=== PATIENT | male | born 1955 | race Caucasian/White ===

== ENCOUNTER 2017-05-02 08:58 | Outpatient (CLI) | payer OTHER ==
[~2017-05-02] VITALS: Ht 177.8 cm; Wt 86.4 kg
--- NOTE | ~2017-05-02 | HEMODYNAMI ---
PATIENT:RAMO MAURO MEDICAL RECORD: [id number] : 53 LOCATION:[facility]CAT ADMISSION DATE: 05/02/17 Generatedon:05/02/201715:03 Patient name: RAMO MAURO Patient #: [id number] SSN: : 1955 Date of study: 05/02/2017 Page: Of Hemodynamic Procedure Report Patient Data Patient Demographics Procedure consent was obtained First Name: RAMO Gender: Male Last Name: ZUNILDA : 1955 Middle Initial: L Age: 61 year(s) Patient #: [id number] Race: Additional ID: [id number] Contact details Address: [address] [place] [address] State: [place] City: [place] Zip code: [address] Past Medical History Allergies: No known allergies Admission Admission Data Admission Date: 05/02/2017 Admission Time: 8:58 Height (in.): 70 BSA: 2.04 (m2) Height (cm.): 177.8 BMI: 27.32 (kg/m2) Weight (lbs.): 190.39 Weight (kg.): 86.36 Lab Results Lab Result Date: 05/02/2017 Lab Result Time: 10:45 Biochemistry Name Units Result Min Max BUN mg/dl 18 --(---*)-- 7 18 Creatinine mg/dl 1.1 --(--*-)-- 0.6 1.3 CBC Name Units Result Min Max Hematocrit % 47.5 --(-*--)-- 42 54 Hemoglobin g/dl 16 --(--*-)-- 13.5 17.5 Procedure Procedure Types Cath Procedure Diagnostic Procedure [facility] w/Coronaries PCI Procedure Coronary Stent Initial Miscellaneous Procedures Moderate Sedation up to 30 minutes Procedure Description Procedure Date Procedure Date: 05/02/2017 Procedure Start Time: 14:43 Procedure End Time: 15:02 Procedure Staff Name Function Ángel Nath MD Performing Physician Jessica Brunner RT Scrub Izzy Powell RN Nurse Mal Arteaga RT Monitor Procedure Data Cath Procedure Fluoroscopy Diagnostic fluoroscopy Total fluoroscopy Time: 3.6 time: 3.6 min min Diagnostic fluoroscopy Total fluoroscopy dose: 528 dose: 528 mGy mGy Contrast Material Contrast Material Type Amount (ml) Isovue 300 80 Entry Location Entry Primary Successful Side Size Upsize Upsize Entry Closure Succes sful Closure Location (Fr) 1 (Fr) 2 (Fr) Remarks Device Remarks Femoral Right 5 Fr 6 Fr Exoseal artery Short Estimated blood loss: 10 ml Diagnostic catheters Device Type Used For End Catheter Placement Cordis 5Fr Pigtail Procedure Catheter (MP) Cordis 5Fr JL 4.0 Procedure Catheter (MP) Cordis 5Fr 3DRC Catheter Procedure (MP) Procedure Complications No complications Procedure Medications Medication Administration Route Dosage Oxygen NC 2 l/min Heparin Flush Bag added to field 2 bags (1000units/500ml NS) Lidocaine 2% added to field 20 Fentanyl I.V. 50 mcg Versed I.V. 1 mg Fentanyl I.V. 50 mcg Versed I.V. 1 mg Fentanyl I.V. 50 mcg Versed I.V. 1 mg Fentanyl I.V. 50 mcg Versed I.V. 1 mg Heparin Bolus I.V. 4000 units Hemodynamics Rest BSA: 2.04 (m2) HGB: 16 (g/dl) O2 Consumption: Estimated: 244.71 (ml/min) O2 Cons umption indexed: Estimated:119.96 (ml/min/m) Heart Rate: 77 (bpm) Snapshots Pre Cath Intra NCS Post Cath Vital Signs Time Heart Resp SPO2 etCO2 [id number] NIBP (mmHg) Rhythm Pain Sedatio n Rate (ipm) (%) (mmHg) (mmHg) Status Level (bpm) 14:08:16 68 17 99 0 0 156/98(133) NSR 0 (11) 10(A) , No pain 14:12:36 68 18 96 0 0 157/90(124) NSR 0 (11) 10(A) , No pain 14:16:50 73 16 99 0 0 144/98(122) NSR 0 (11) 10(A) , No pain 14:21:04 82 25 98 0 0 147/104(118) NSR 0 (11) 10(A) , No pain 14:25:18 76 18 97 0 0 141/98(117) NSR 0 (11) 10(A) , No pain 14:29:30 74 22 98 0 0 146/93(115) NSR 0 (11) 10(A) , No pain 14:33:44 73 17 97 0 0 125/92(102) NSR 0 (11) 10(A) , No pain 14:37:50 75 16 97 0 0 141/91(107) NSR 0 (11) 10(A) , No pain 14:42:04 76 19 97 0 0 134/87(112) NSR 0 (11) 9(A) , No pain 14:46:20 70 18 97 0 0 125/76(98) NSR 0 (11) 9(A) , No pain 14:51:25 66 18 98 0 0 181/112(141) NSR 0 (11) 9(A) , No pain 14:55:39 77 16 97 0 0 150/92(111) NSR 0 (11) 9(A) , No pain 14:59:55 75 11 96 0 0 135/81(105) NSR 0 (11) 9(A) , No pain Medications Time Medication Route Dose Verified Delivered Reason Notes Effectiveness by by 14:15:33 Oxygen NC 2 Izzy Izzy used for l/min Powell Powell trashman RN 14:15:41 Heparin Flush added 2 Izzy Izzy used for Bag to bags Powell Powell procedure (1000units/500ml RN RN NS) 14:15:48 Lidocaine 2% added 20ml Izzy Izzy used for to vial Powell Powell procedure field VALENCIA RN 14:38:35 Fentanyl I.V. 50 Izzy Izzy for sedation mcg Sherry Powell RN RN 14:38:39 Versed I.V. 1 mg Izzy Izzy for sedation Sherry Powell RN RN 14:40:26 Fentanyl I.V. 50 Izzy Izzy for sedation mcg Sherry Powell RN RN 14:40:29 Versed I.V. 1 mg Izzy Izzy for sedation Sherry Powell RN RN 14:41:30 Fentanyl I.V. 50 Izzy Izzy for sedation mcg Sherry Powell RN RN 14:41:34 Versed I.V. 1 mg Izzy Izzy for sedation Sherry Powell RN RN 14:43:50 Fentanyl I.V. 50 Izzy Izzy for sedation mcg Sherry Powell RN RN 14:43:53 Versed I.V. 1 mg Izzy Izzy for sedation Sherry Powell RN RN 14:50:25 Heparin Bolus I.V. 4000 Izzy Izzy for units Sherry Powell anticoagulation RN shroud line tier Log Time Note 13:57:44 Izzy Powell RN sent for patient. Start room use. 13:57:45 Time tracking: Regular hours 13:57:50 Plan of Care:Hemodynamics will remain stable., Cardiac rhythm will remain stable., Comfort level will be maintained., Respiratory function will remain adequate., Patient/ family verbilizes understanding of procedure., Procedure tolerated without complication., Recovers from procedure without complications.. 14:00:58 Patient received from Pre/Post Procedure Room to CCL 1 Alert and oriented. Tansferred to table in Supine position. 14:00:59 Warm blankets applied, and tita hugger turned on for patient comfort. 14:01:00 Correct patient and procedure confirmed by team. 14:01:01 Signed procedure consent form obtained from patient. 14:01:02 ECG and BP/O2 sat monitors applied to patient. 14:01:03 Full Disclosure recording started 14:07:05 Vital chart was started 14:07:11 Rhythm: sinus rhythm 14:07:24 H&P Date Dictated: 04/29/2017 Within 30 days and on chart., H&P Addendum completed by physician on day of procedure. (MUST COMPLETE FOR ALL OUTPATIENTS). 14:07:25 Pre-procedure instructions explained to patient. 14:07:25 Pre-procedure instructions explained to patient. 14:07:27 Pre-op teaching completed and patient verbalized understanding. 14:07:30 Family in patients room. 14:07:31 Patient NPO since Midnight. 14:07:39 Patient allergic to No known allergies 14:10:33 Is the patient allergic to Iodine/contrast media? No. 14:11:15 Is patient on blood thinner?Yes 14:11:17 ACC The patient was administered the following blood thiners within the last 24 hours: ACCPlavix 14:11:19 Patient diabetic? No. 14:11:27 Previous problem with sedation/anesthesia? No ? 14:11:28 Snore? Yes 14:11:29 Sleep apnea? No 14:11:30 Deviated septum? No 14:11:31 Opens mouth fully? Yes 14:11:31 Sticks out tongue? Yes 14:11:33 Airway obstruction? No ? 14:11:34 Dentures? No ? 14:12:01 Pre procedure: right dorsailis pedis pulse 1+ Palpable, but thready & weak; easily obliterated 14:12:04 Patient pain scale 0/10 ?. 14:12:22 IV patent on arrival in left forearm with 0.9% NaCl at [facility]. 14:15:33 Oxygen 2 l/min NC was administered by Izzy Powell RN; used for procedure; 14:15:41 Heparin Flush Bag (1000units/500ml NS) 2 bags added to field was administered by Izzy Powell RN; used for procedure; 14:15:48 Lidocaine 2% 20ml vial added to field was administered by Izzy Powell RN; used for procedure; 14:15:49 Lab Result : BUN 18 mg/dl 14:15:49 Lab Result : Creatinine 1.1 mg/dl 14:15:49 Lab Result : Hematocrit 47.5 % 14:15:49 Lab Result : Hemoglobin 16 g/dl 14:15:52 Lab results completed and on chart. 14:15:57 Right groin area was prepped with chlora-prep and draped in sterile fashion 14:15:58 Alarms reviewed by R. N. 14:15:59 Sharps counted by scrub and verified by R.N. 14:16:02 Use device set Femoral Dx 14:16:04 Tegaderm 4 x 4 opened to sterile field. 14:16:04 Acist Manifold opened to sterile field. 14:16:06 Acist Hand Control opened to sterile field. 14:16:06 Acist Syringe opened to sterile field. 14:16:07 Bag Decanter opened to sterile field. 14:16:07 Medline Cath Pack opened to sterile field. 14:16:08 Terumo 5Fr [place] Sheath opened to sterile field. 14:16:08 St Mesfin 260cm J .035 wire opened to sterile field. 14:16:10 Diagnostic Infinity 5Fr Multipack catheter opened to sterile field. 14:17:06 Patient Height : 70 cm 14:17:11 Patient Weight : 190.39 kg 14:22:05 Baseline sample Acquired. 14:38:00 Physician arrived 14:38:00 --------ALL STOP TIME OUT------ 14:38:01 Final Timeout: patient, procedure, and site verified with staff and physician. All members of the team are in agreement. 14:38:04 Right groin site verified by team. 14:38:07 Physical assessment completed. ASA score P 2 - A patient with mild systemic disease as per Ángel Nath MD. 14:38:12 Sedation plan: IV Moderate Sedation Versed, Fentanyl 14:38:35 Fentanyl 50 mcg I.V. was administered by Izzy Powell RN; for sedation; 14:38:39 Versed 1 mg I.V. was administered by Izzy Powell RN; for sedation; 14:40:26 Fentanyl 50 mcg I.V. was administered by Izzy Powell RN; for sedation; 14:40:29 Versed 1 mg I.V. was administered by Izzy Powell RN; for sedation; 14:41:30 Fentanyl 50 mcg I.V. was administered by Izzy Powell RN; for sedation; 14:41:34 Versed 1 mg I.V. was administered by Izzy Powell RN; for sedation; 14:43:24 Procedure started. 14:43:27 Local anesthetic to right femoral artery with Lidocaine 2% by Ángel Nath MD.INITIAL ACCESS ONLY 14:43:33 A 5 Fr sheath was inserted into the Right Femoral artery 14:43:50 Fentanyl 50 mcg I.V. was administered by Izzy Powell RN; for sedation; 14:43:53 Versed 1 mg I.V. was administered by Izzy Powell RN; for sedation; 14:44:35 A Cordis 5Fr Pigtail Catheter (MP) was advanced over the wire and used for Procedure. 14:44:53 LV gram done using HU 14:44:56 Injector settings: Ml/sec: 10, Volume: 20, 14:45:06 EF : 60 % 14:45:11 Catheter exchanged over wire. 14:45:14 A Cordis 5Fr JL 4.0 Catheter (MP) was advanced over the wire and used for Procedure. 14:46:03 [employer] BasixCompak Inflation Kit opened to sterile field. 14:46:04 Noonan Whisper J 300cm 0.014 guide wire opened to sterile field. 14:46:06 Terumo 6Fr [place] Sheath opened to sterile field. 14:46:50 Catheter exchanged over wire. 14:46:54 A Cordis 5Fr 3DRC Catheter (USHA) was advanced over the wire and used for Procedure. 14:47:47 RCA angiography performed. 14:47:50 Catheter removed. 14:47:58 Sheath upsized to a 6 Fr Short. 14:48:07 Cordis 6FR XBLAD 3.5 guide catheter opened to sterile field. 14:48:18 6 Fr xblad 3.5 guide catheter was inserted over the wire 14:48:49 whisper wire advanced. 14:50:02 Wire advanced across lesion. 14:50:25 Heparin Bolus 4000 units I.V. was administered by Izzy Powell RN; for anticoagulation; 14:51:13 Inflation number: 1 A [employer] Thomas 3.0 X 20 balloon was prepped and advanced across the Prox LAD, then inflated to 11 FERNANDO for 0:10 (min:sec). 14:51:23 Balloon removed over the wire. 14:53:01 Inflation Number: 2 A [employer]idia Technologytronic Resolute 3.5 X 38 stent was prepped and advanced across the Prox LAD. The stent was deployed at 15 FERNANDO for 0:10 (min:sec). 14:54:12 Stent catheter was removed intact over wire. 14:54:12 Balloon removed over the wire. 14:54:13 Guide catheter removed. 14:54:19 Cordis 6Fr Exoseal opened to sterile field. 14:54:29 Sheath removed intact; hemostasis achieved with Exoseal to the Right Femoral artery. 14:54:31 Procedure ended.(Physican Out) 14:56:39 Fluoroscopy time 03.60 minutes. 14:56:43 Flurop Dose total: 528 14:56:43 Fluoroscopy dose: 528 mGy 14:56:46 Contrast amount:Isovue 300 80ml. 14:58:03 Sharps counted by scrub and verified by R.N. 14:58:05 Insertion/operative site no bleeding no hematoma. 14:58:07 Post-op/insertion site Right Femoral artery dressed using a 4 x 4 and Tegaderm. 14:58:11 Post right femoral artery:stable, soft, clean and dry 14:58:13 Post Procedure Pulses reassessed and unchanged 14:58:15 Post-procedure physical assessment completed. ASA score P 2 - A patient with mild systemic disease as per Ángel Nath MD. 14:58:18 Post procedure rhythm: unchanged. 14:58:25 Estimated blood loss: 10 ml 14:58:27 Post procedure instruction explained to patient.Patient verbalizes understanding. 14:58:27 Patient needs reinforcement of post procedure teaching. 14:58:34 Procedure type changed to Cath procedure, Diagnostic procedure, LHC, LHC w/Coronaries, PCI procedure, Coronary Stent Initial, Miscellaneous Procedures, Moderate Sedation up to 30 minutes 15:01:49 Procedure and supply charges have been captured, reviewed, submitted and are correct. 15:01:51 Procedure Complication : No complications 15:01:53 Vital chart was stopped 15:01:53 See physician's report for complete and final results. 15:01:56 Report given to Pre/Post Procedure Room. 15:01:58 Patient transfered to Pre/Post Procedure Room with Stretcher. 15:02:01 Procedure ended. 15:02:01 Full Disclosure recording stopped 15:02:38 End room use (Document Last) Intervention Summary Intervention Notes Time ActionType Lesion and Equipment Action# Pressure Duration Attributes Used 14:51:13 Inflate Prox LAD Sidman 1 11 00:10 balloon Sci Thomas 3.0 X 20 balloon 14:53:[address] stent Prox LAD Medtronic 2 15 00:10 Resolute 3.5 X 38 stent Device Usage Item Name Manufacture Quantity Catalog Number Hospital Part Current Mini [facility] Lot# / Charge Number Stock Stock Serial# Code Tegaderm 4 1 [id number] 730687 5 x 4 Acist Acist 1 94632 017040 431103 582540 5 Manifold Medical Systems Inc Acist Hand Acist 1 34015 241094 527195 505942 5 Control Medical Systems Inc Acist Acist 1 89626 007896 350014 906829 20 Syringe Medical Systems Inc Bag Microtek 1 2001S 742043 61755 153249 5 Decanter Medical Inc. Medline Cardinal 1 [id number] 783330 74062 478401 5 Cath Pack Health Terumo 5Fr Terumo 1 [id number] 376515 299542 927593 [address] Mesfin 1 258876 164500 876811 764451 30 260cm J .035 wire Diagnostic Cardinal 1 [id number] 662117 93624 604005 30 Infinity Health 5Fr Multipack catheter Cordis 5Fr Cardinal 1 849871 5 Pigtail Health Catheter (MP) Cordis 5Fr Cardinal 1 899575 5 JL 4.0 Health Catheter (MP) [facility] 1 [id number] 590851 240924 837132 15 BasixCompak Medical Inflation Kit Noonan Noonan 1 [id number] 521031 898601 126589 5 Whisper J Vascular 300cm 0.014 guide wire Terumo 6Fr Terumo 1 [id number] 579774 856580 475531 40 [place] Sheath Cordis 5Fr Cardinal 1 632560 5 3DRC Health Catheter (MP) Cordis 6FR Cardinal 1 [id number] 780732 327200 140774 10 XBLAD 3.5 Health guide catheter Sidman Sci Sidman 1 [id number] 697610 733514 929908 1 [id number] Useful Systems Scientific 3.0 X 20 balloon Medtronic Medtronic 1 [id number] 793060 761570 0 [id number] Resolute 3.5 X 38 stent Cordis 6Fr Cardinal 1 EX600 560841 967424 982057 10 [facility] [employer] Signature Audit [facility] [place] [facility] Time Signature Unsigned Intra-Procedure 05/02/2017 Mal Arteaga 3:03:41 PM RT(R) Signatures Monitor : Mal Arteaga RT Signature : Date : Time : [facility] [address] [place] [address]
--- NOTE | ~2017-05-02 | OP ---
PATIENT NAME: RAMO MAURO MEDICAL RECORD: [id number] :53 LOCATION:D.CAT ADMISSION DATE: SURGEON: DENI FARIA MD DATE OF OPERATION: 05/02/2017 PROCEDURES: 1. PTCA stent LAD. 2. Left heart catheterization. 3. Selective coronary angiography. 4. Left ventriculogram. INDICATION: Angina and coronary artery disease. PROCEDURE: After informed consent was obtained and after a detailed description of the risks, benefits as well as alternative of angiogram and angioplasty. The right femoral area was prepped and draped in normal sterile fashion. Right femoral artery was cannulated via modified Seldinger technique with placement of 6-Romanian sheath. All catheters exchanged through this sheath. FINDINGS: Left ventriculogram was performed in standard 30-degree HU view, reveals good cardiac wall motion throughout all segments. Overall ejection fraction estimated 60%. SELECTIVE CORONARY ANGIOGRAPHY: 1. Left main is with no significant angiographic disease. 2. Left anterior descending has a previously placed stent with 99% in-stent restenosis. 3. Left circumflex has moderate irregularities, but no flow-limiting stenosis. 4. Right coronary has moderate irregularities, but no flow-limiting stenosis. PTCA STENT OF THE LAD: The stent used is a 3.5 x 38 mm Resolute. Result was 0% residual stenosis. OVERALL IMPRESSION: Successful percutaneous transluminal coronary angioplasty stent of the left anterior descending going from 95% initial stenosis to 0% residual. TRANSINT:[id number] Voice Confirmation ID: [id number] DOCUMENT ID: [id number] DENI FARIA MD CC: [id number] DICTATION DATE: 05/02/17 1458 SEMI CONDUCTOR ASSEMBLER: 05/02/17 2311 [facility] CLI 05/02/17 [place] [id number]
[~2017-05-02 08:58] MED LIST: BAYER CHEWABLE81 MG PO; CATAPRES0.1 MG PO; COZAAR50 MG PO; HYDROCODON-ACE1 EAC7 PO; NITROQUICK0.4 MG SL; PLAVIX75 MG PO; PRAVACHOL40 MG PO; PRINIVIL20 MG PO; ZESTRIL40 MG PO
[2017-05-02] MEDS ORDERED: TRAMADOL HCL E200 M1 PO (10:29)
[2017-05-02] MEDS ORDERED: CHLORTHALIDONE25 MG PO (10:30)
[2017-05-02 10:33] VITALS: BP 148/101; Ht 177.8 cm; Wt 86.4 kg
[2017-05-02 11:20] LABS: ANION GAP 9.3 mmol/L (8-16); CALCIUM 9.1 mg/dL (8.5-10.1); CARBON DIOXIDE 24.1 mmol/L (21.0-32.0); CREATININE - SERUM 1.1 mg/dL (0.6-1.3); POTASSIUM - SERUM 4.4 mmol/L (3.5-5.1)
[2017-05-02 11:53] LABS: BASOPHILS 0.3 % (0-2); EOSINOPHILS 1.3 % (0-7); HEMATOCRIT 47.5 % (42.0-54.0); IMMATURE GRANULOCYTES 0.3 % (0-5); LYMPHOCYTES 22.5 % (15-50); MCH 30.5 pg (26.0-34.0); MCHC 33.7 g/dL (31.0-37.0); MCV 90.6 fL (80.0-100.0); MEAN PLATELET VOLUME 11.2 fL (7.4-10.4); MONOCYTES 9.2 % (2-11); NEUTROPHILS 66.4 % (40-80); PLATELET COUNT 279 10x3/uL (130-400); RBC 5.24 10x6/uL (4.20-6.10); RDW 15.6 % (11.5-14.5); WBC 7.5 10x3/uL (4.8-10.8)
--- NOTE | 2017-05-02 15:30 | NUR ---
RIGHT GROIN CDI, NO HEMATOMA OR BLEEDING NOTED AT SITE, SOFT TO TOUCH
--- NOTE | 2017-05-02 16:00 | NUR ---
NO CHANGES IN RIGHT GROIN, FAMILY AT SIDE
--- NOTE | 2017-05-02 18:45 | NUR ---
IV D'C WITH CATH TIP INTACT, UP TO REST ROOM-VOID, RIGHT GROIN CDI, WRITTEN AND VERBAL INSTRUCTIONS GIVEN TO PT AND , QUESTIONS ANSWERED- DENIES PAIN. D'C HOME WITH DRIVING
== END 2017-05-02 19:00 | disposition home or self-care (01) ==
LOC: D.CATH 08:58
PROVIDERS: Internal Medicine Interventional Cardiology
DX: I25.119 Atherosclerotic heart disease of native coronary artery with unspecified angina pectoris (principal); T82.855A Stenosis of coronary artery stent, initial encounter; Z01.812 Encounter for preprocedural laboratory examination

== ENCOUNTER → 2018-12-15 07:31 | Outpatient (CLI) | payer OTHER ==
[~2018-12-15] VITALS: Ht 177.8 cm; Wt 86.4 kg
--- NOTE | ~2018-12-15 | HEMODYNAMI ---
PATIENT:RAMO MAURO MEDICAL RECORD: [id number] : 53 LOCATION:D.CAT ADMISSION DATE: 12/15/18 Generatedon:12/15/201810:24 Patient name: RAMO MAURO Patient #: [id number] SSN: : 1955 Date of study: 12/15/2018 Page: Of Hemodynamic Procedure Report Patient Data Patient Demographics Procedure consent was obtained First Name: RAMO Gender: Male Last Name: ZUNILDA : 1955 Middle Initial: L Age: 63 year(s) Patient #: [id number] Race: Additional ID: [id number] Contact details Address: [address] [place] [address] State: [place] City: [place] Zip code: [address] Past Medical History Allergies: No known allergies Admission Admission Data Admission Date: 12/15/2018 Admission Time: 7:31 Lab Results Lab Result Date: 12/15/2018 Lab Result Time: 0:00 Biochemistry Name Units Result Min Max BUN mg/dl 17 --(---*)-- 7 18 Creatinine mg/dl 1.2 --(---*)-- 0.6 1.3 CBC Name Units Result Min Max Hemoglobin g/dl 15.9 --(--*-)-- 13.5 17.5 Procedure Procedure Types Cath Procedure Peripheral Cath Diagnostic Procedure Icebox Man Peripheral Procedures Jvien-Wxfwbhv-Ugn-Off Peripheral vascular Intervention Angioplasty Angioplasty Iliac Initial Procedure Description Procedure Date Procedure Date: 12/15/2018 Procedure Start Time: 9:52 Procedure End Time: 10:23 Procedure Staff Name Function Ángel Nath MD Performing Physician Kofi Arteaga RN Nurse Tessie Abernathy RT Monitor Suzy Rodriguez RT Scrub Harlan Santana RT Scrub Procedure Data Cath Procedure Fluoroscopy Diagnostic fluoroscopy Total fluoroscopy Time: 4.7 time: 4.7 min min Diagnostic fluoroscopy Total fluoroscopy dose: 251 dose: 251 mGy mGy Contrast Material Contrast Material Type Amount (ml) Isovue 300 104 Entry Location Entry Primary Successful Side Size Upsize Upsize Entry Closure Succes sful Closure Location (Fr) 1 (Fr) 2 (Fr) Remarks Device Remarks Femoral Left 5 Fr Exoseal artery Femoral Right 6 Fr Exoseal artery Long Estimated blood loss: 10 ml Diagnostic catheters Device Type Used For End Catheter Placement DIAGNOSTIC UF 5Fr Procedure catheter ([id number]) Procedure Complications No complications Procedure Medications Medication Administration Route Dosage Oxygen etCO2 Nasal cannula 2 l/min Heparin Flush Bag added to field 2 bags (1000units/500ml NS) 0.9% NaCl I.V. 100 ml/hr Lidocaine 2% added to field 20 Fentanyl I.V. 50 mcg Versed I.V. 1 mg Fentanyl I.V. 50 mcg Versed I.V. 1 mg Fentanyl I.V. 50 mcg Versed I.V. 1 mg Fentanyl I.V. 50 mcg Versed I.V. 1 mg Heparin Bolus I.V. 4000 units Hemodynamics Rest HGB: 15.9 (g/dl) Heart Rate: 71 (bpm) Snapshots Pre Cath Intra NCS Post Cath Vital Signs Time Heart Resp SPO2 etCO2 NIBP (mmHg) Rhythm Pain Sedation Rate (ipm) (%) (mmHg) Status Level (bpm) 9:28:28 68 16 99 0 153/97(129) NSR 0 (11) 10(A) , No pain 9:33:35 67 16 98 27.6 166/93(119) NSR 0 (11) 10(A) , No pain 9:37:53 70 16 98 22.4 123/83(104) NSR 0 (11) 10(A) , No pain 9:41:59 69 17 98 31.4 138/94(122) NSR 0 (11) 10(A) , No pain 9:46:13 71 17 98 29.8 138/84(122) NSR 0 (11) 10(A) , No pain 9:50:23 67 16 96 0 141/86(107) NSR 0 (11) 10(A) , No pain 9:54:41 73 16 97 8.9 137/78(103) NSR 0 (11) 9(A) , No pain 9:58:50 73 16 97 50.8 135/85(117) NSR 0 (11) 9(A) , No pain 10:03:06 73 16 98 47.1 125/80(95) NSR 0 (11) 9(A) , No pain 10:07:25 71 17 98 0 116/64(86) NSR 0 (11) 9(A) , No pain 10:11:34 70 17 98 37.4 117/73(98) NSR 0 (11) 9(A) , No pain 10:15:45 71 16 98 35.1 131/74(95) NSR 0 (11) 9(A) , No pain 10:17:41 71 17 98 32.1 129/78(91) NSR 0 (11) 9(A) , No pain 10:21:51 67 10 98 18.7 125/79(94) NSR 0 (11) 9(A) , No pain Medications Time Medication Route Dose Verified Delivered Reason Notes Effectiveness by by 9:27:51 Oxygen etCO2 2 Ángel Kofi Per physician Nasal l/min Portillo Arteaga RN cannula 9:27:59 Heparin Flush added 2 Ángel Kofi used for Bag to bags Portillo Arteaga RN procedure (1000units/500ml field NS) 9:28:07 0.9% NaCl I.V. 100 Ángel Kofi Per physician ml/hr Portillo Arteaga RN 9:28:16 Lidocaine 2% added 20ml Ángel Kofi used for to vial Portillo Arteaga RN procedure field 9:47:05 Fentanyl I.V. 50 Ángel Kofi for sedation mcg Portillo Arteaga RN 9:47:11 Versed I.V. 1 mg Ángel Kofi for sedation Portillo Arteaga RN 9:51:37 Fentanyl I.V. 50 Ángel Kofi for sedation mcg Portillo Arteaga RN 9:51:43 Versed I.V. 1 mg Ángel Kofi for sedation Portillo Arteaga RN 9:53:40 Fentanyl I.V. 50 Ángel Kofi for sedation mcg Portillo Arteaga RN 9:53:44 Versed I.V. 1 mg Ángel Kofi for sedation Portillo Arteaga RN 9:58:43 Fentanyl I.V. 50 Ángel Kofi for sedation mcg Portillo Arteaga RN 9:58:46 Versed I.V. 1 mg Ángel Kofi for sedation Portillo Arteaga RN 10:03:46 Heparin Bolus I.V. 4000 Ángel Kirby for units Portillo Arteaga RN anticoagulation Procedure Log Time Note 9:00:08 Informed consent obtained and on chart 9:00:14 Diagnostic Cath Status : Elective 9:01:05 Kofi Arteaga RN sent for patient. Start room use. 9:01:05 Time tracking: Regular hours (M-F 7:00 - 5:00) 9:01:11 Plan of Care:Hemodynamics will remain stable., Cardiac rhythm will remain stable., Comfort level will be maintained., Respiratory function will remain adequate., Patient/ family verbilizes understanding of procedure., Procedure tolerated without complication., Recovers from procedure without complications.. 9:20:12 Patient received from Pre/Post Procedure Room to CCL 2 Alert and oriented. Tansferred to table in Supine position. 9:20:13 Warm blankets applied, and tita hugger turned on for patient comfort. 9:20:14 Correct patient and procedure confirmed by team. 9:20:14 ECG and BP/O2 sat monitors applied to patient. 9:27:21 Vital chart was started 9:27:51 Oxygen 2 l/min etCO2 Nasal cannula was administered by Kofi Arteaga RN; Per physician; 9:27:59 Heparin Flush Bag (1000units/500ml NS) 2 bags added to field was administered by Kofi Arteaga RN; used for procedure; 9:28:03 Baseline sample Acquired. 9:28:07 0.9% NaCl 100 ml/hr I.V. was administered by Kofi Arteaga RN; Per physician; 9:28:07 Rhythm: sinus rhythm 9:28:08 Full Disclosure recording started 9:28:09 Pre-procedure instructions explained to patient. 9:28:09 Pre-op teaching completed and patient verbalized understanding. 9:28:11 Family in patients room. 9:28:12 Patient NPO since Midnight. 9:28:16 Lidocaine 2% 20ml vial added to field was administered by Kofi Arteaga RN; used for procedure; 9:28:19 Patient allergic to No known allergies 9:28:21 Is patient on blood thinner?Yes 9:28:24 ACC The patient was administered the following blood thiners within the last 24 hours: ACCPlavix 9:28:26 Patient diabetic? No. 9:28:28 Previous problem with sedation/anesthesia? No ? 9:28:36 Snore? Yes 9:28:37 Sleep apnea? No 9:28:38 Deviated septum? No 9:28:39 Opens mouth fully? Yes 9:28:40 Sticks out tongue? Yes 9:28:42 Airway obstruction? No ? 9:28:45 Dentures? Yes out 9:34:58 H&P Date Dictated: 12/09/2018 Within 30 days and on chart., H&P Addendum completed by physician on day of procedure. (MUST COMPLETE FOR ALL OUTPATIENTS). 9:35:06 Pre procedure: right dorsailis pedis pulse 1+ Palpable, but thready & weak; easily obliterated 9:35:09 Pre procedure: left dorsailis pedis pulse 1+ Palpable, but thready & weak; easily obliterated 9:35:12 Patient pain scale 0/10 ?. 9:35:17 IV patent on arrival in left hand with 0.9% NaCl at O. 9:36:28 Lab Result : BUN 17 mg/dl 9:36:28 Lab Result : Creatinine 1.2 mg/dl 9:36:28 Lab Result : Hemoglobin 15.9 g/dl 9:36:32 Lab results completed and on chart. 9:36:36 Bilateral groins area was prepped with chlora-prep and draped in sterile fashion 9:36:36 Alarms reviewed by R. N. 9:36:37 Sharps counted by scrub and verified by R.N. 9:39:05 Use device set CATH PACK 9:39:06 ACIST Syringe (34607) opened to sterile field. 9:39:06 ACIST Hand Control (38001) opened to sterile field. 9:39:07 ACIST Manifold (30847) opened to sterile field. 9:39:07 Medline Cath Pack ([id number]) opened to sterile field. 9:39:07 Bag Decanter (2002) opened to sterile field. 9:39:08 DIAGNOSTIC WIRE .035 260cm J wire (899460) opened to sterile field. 9:46:38 --------ALL STOP TIME OUT------ 9:46:39 Final Timeout: patient, procedure, and site verified with staff and physician. All members of the team are in agreement. 9:46:41 Bilateral groins site verified by team. 9:46:46 Fire Safety Assessment: A--An alcohol-based skin anteseptic being used preoperatively., C--Open oxygen or nitrous oxide is being used., D--An ESU, laser, or fiber-optic light is being used. 9:46:50 Physical assessment completed. ASA score P 2 - A patient with mild systemic disease as per Ángel Nath MD. 9:46:52 Sedation plan: IV Moderate Sedation Medication:Versed, Fentanyl 9:47:05 Fentanyl 50 mcg I.V. was administered by Kofi Arteaga RN; for sedation; 9:47:11 Versed 1 mg I.V. was administered by Kofi Arteaga RN; for sedation; 9:51:37 Fentanyl 50 mcg I.V. was administered by Kofi Arteaga RN; for sedation; 9:51:43 Versed 1 mg I.V. was administered by Kofi Arteaga RN; for sedation; 9:52:26 Procedure started. 9:52:45 Local anesthetic to left femerol artery with Lidocaine 2% by Ángel Nath MD.INITIAL ACCESS ONLY 9:53:33 A 5 Fr sheath was inserted into the Left Femoral artery 9:53:40 Fentanyl 50 mcg I.V. was administered by Kofi Arteaga RN; for sedation; 9:53:44 Versed 1 mg I.V. was administered by Kofi Arteaga RN; for sedation; 9:53:45 A DIAGNOSTIC UF 5Fr catheter ([id number]) was advanced over the wire and used for Procedure. 9:55:13 Abdominal angiogram w/ runoff was performed. 9:55:17 Left leg runoff performed. 9:55:18 Right leg runoff performed. 9:56:28 Catheter removed. 9:56:41 WILL PROCEED TO RIGHT GROIN STICK 9:56:48 SHEATH 6FR Brite Tip 35cm ([id number]) opened to sterile field. 9:57:15 Local anesthetic to right femoral artery with Lidocaine 2% by Ángel Nath MD.ADDITIONAL ACCESS 9:57:24 SHEATH 6FR Friona (GFX690) opened to sterile field. 9:57:25 INFLATOR Merit BasixCompak (ZQ9382) opened to sterile field. 9:57:25 CHOICE PT Extra Support J 300cm guide wire ([id number]) opened to sterile field. 9:58:19 A 6 Fr Long sheath was inserted into the Right Femoral artery 9:58:43 Fentanyl 50 mcg I.V. was administered by Kofi Arteaga RN; for sedation; 9:58:46 Versed 1 mg I.V. was administered by Kofi Arteaga RN; for sedation; 10:02:23 Procedure type changed to Cath procedure, Peripheral Cath Diagnostic Procedure, Icebox Man Peripheral Procedures, Feyma-Wbsunsf-Lql-Off, Peripheral vascular Intervention, Angioplasty, Angioplasty Iliac Initial 10:03:46 Heparin Bolus 4000 units I.V. was administered by Kofi Arteaga RN; for anticoagulation; 10:04:44 Inflate balloon Inflation number: 1 A STELLAREX 6 x 40 DE balloon ([id number]) was prepped and advanced across the Proximal Common Iliac, Right, then inflated to 13 FERNANDO for 2:00 (min:sec). 10:07:43 Inflation number: 2 The STELLAREX 6 x 40 DE balloon ([id number]) was reinflated across the Proximal Common Iliac, Right, to 15 FERNANDO for 2:34 (min:sec). 10:07:46 Balloon removed over the wire. 10:09:18 Cordis 6Fr RDC guide catheter opened to sterile field. 10:09:32 6 Fr RDC guide catheter was inserted over the wire 10:09:38 Guide Catheter removed. unable to cannulate vessel. 10:10:17 GUIDE 6FR MARITZA 90 catheter ([id number]) opened to sterile field. 10:10:25 6 Fr MARITZA 90CM guide catheter was inserted over the wire 10:11:29 CHOICE ES 300 wire advanced. 10:11:32 Wire advanced across lesion. 10:13:03 Place stent Inflation Number: 1 A PALMAZ BLUE 5 x 15 x 135 stent ([id number]) was prepped and advanced across the Proximal Renal, Right. The stent was deployed at 9 FERNANDO for 0:10 (min:sec). 10:13:23 Stent catheter was removed intact over wire. 10:14:02 Wire removed. 10:14:03 Guide catheter removed. 10:14:28 EXOSEAL 5Fr (EX500) opened to sterile field. 10:14:29 EXOSEAL 6Fr (EX600) opened to sterile field. 10:15:01 LONG SHEATH EXCHANGED FOR SHORT SHEATH 10:15:46 Sheath removed intact; hemostasis achieved with Exoseal to the Left Femoral artery. 10:16:27 Sheath removed intact; hemostasis achieved with Exoseal to the Right Femoral artery. 10:16:38 Procedure ended.(Physican Out) 10:17:31 Fluoroscopy time 04.70 minutes. 10:17:35 Fluoroscopy dose: 251 mGy 10:17:35 Flurop Dose total: 251 10:17:41 Contrast amount:Isovue 300 104ml. 10:17:43 Sharps counted by scrub and verified by R.N. 10:17:47 Post-op/insertion site Left Femoral artery dressed using a 4 x 4 and Tegaderm. 10:17:51 Post-op/insertion site Right Femoral artery dressed using a 4 x 4 and Tegaderm. 10:17:54 Post-procedure physical assessment completed. ASA score P 2 - A patient with mild systemic disease as per Ángel Nath MD. 10:17:57 Post procedure rhythm: sinus rhythm 10:18:00 Estimated blood loss: 10 ml 10:18:02 Post procedure instruction explained to patient.Patient verbalizes understanding. 10:18:02 Patient needs reinforcement of post procedure teaching. 10:23:32 Procedure and supply charges have been captured, reviewed, submitted and are correct. 10:23:36 Procedure Complication : No complications 10:23:38 Vital chart was stopped 10:23:38 See physician's report for complete and final results. 10:23:40 Report given to Pre/Post Procedure Room. 10:23:42 Patient transfered to Pre/Post Procedure Room with Stretcher. 10:23:45 Procedure ended. 10:23:45 Full Disclosure recording stopped 10:23:48 End room use (Document Last) Intervention Summary Intervention Notes Time ActionType Lesion and Equipment Used Action# Pressure Duration Attributes 10:04:44 Inflate Proximal STELLAREX 6 x 40 1 13 02:00 balloon Common DE balloon Iliac, ([id number]) Right 10:07:43 Reinflate Proximal STELLAREX 6 x 40 2 15 02:34 balloon Common DE balloon Iliac, ([id number]) Right 10:13:03 Place stent Proximal PALMAZ BLUE 5 x 1 9 00:10 Renal, 15 x 135 stent Right ([id number]) Device Usage Item Name Manufacture Quantity Catalog Number [facility] nt Minimal Lot# / Charge Number Stock Stock Serial# Code ACIST Syringe Acist 1 84359 066525 376581 25273 2 20 (38086) [employer] ACIST Hand Acist 1 93429 613473 596139 41636 7 5 Control (05113) [employer] ACIST Manifold Acist 1 93212 063385 823184 42127 4 5 (70522) [employer] Medline Cath Pack Medline 1 [id number] 691901 26974 19924 2 5 ([id number]) Bag Decanter Microtek 1 2001S 136600 50277 91895 8 5 (2001S) Medical Inc. DIAGNOSTIC WIRE St Mesfin 1 152086 108682 611635 70261 4 30 .035 260cm J wire (530448) DIAGNOSTIC UF 5Fr Cardinal 1 [id number] 170718 810719 69609 6 10 catheter Health ([id number]) SHEATH 6FR Brite Cardinal 1 [id number] 938976 798534 84367 2 1 Tip 35cm Health (620608P) SHEATH 6FR Terumo 1 VCG764 352965 868987 10524 1 40 Friona (YVE414) INFLATOR Merit Merit 1 MP7883 293890 718507 26955 7 15 [facility] (VP3642) CHOICE PT Extra Hockley 1 [id number] 432254 044133 18822 1 5 Support J 300cm Scientific guide wire ([id number]) STELLAREX 6 x 40 Horace 1 [id number] 408149 357455 37965 5 5 DE balloon Healthcare ([id number]) (659369) Cordis 6Fr RDC Cardinal 1 [id number] 686564 773817 42222 9 5 guide catheter Health GUIDE 6FR MARITZA 90 Medtronic 1 [id number] 025787 00042 09837 3 1 catheter ([id number]) PALMAZ BLUE 5 x Cardinal 1 [id number] 575194 509317 77994 6 5 15 x 135 stent Health ([id number]) EXOSEAL 5Fr Cardinal 1 EX500 416796 910863 86575 8 10 (EX500) Health EXOSEAL 6Fr Cardinal 1 EX600 615006 249174 42665 9 10 (EX600) Health Signature Audit [place] Stage Time Signature Unsigned Intra-Procedure 12/15/2018 Tessie Abernathy 10:24:28 AM RT(R) Signatures Monitor : Tessie Abernathy Signature : RT Date : Time : [address] [address]
[~2018-12-15 07:31] MED LIST changes: +CHLORTHALIDONE25 MG PO; +EDARBYCLOR 40-1 EAC1 PO; +TRAMADOL HCL E200 M1 PO
[2018-12-15 07:58] VITALS: BP 113/74; Ht 177.8 cm; Wt 86.4 kg
[2018-12-15 08:37] LABS: BASOPHILS 0.2 % (0-2); EOSINOPHILS 1.1 % (0-7); HEMATOCRIT 47.6 % (42.0-54.0); HEMOGLOBIN 15.9 g/dL (13.5-17.5); IMMATURE GRANULOCYTES 0.4 % (0-5); LYMPHOCYTES 19.2 % (15-50); MCH 29.1 pg (26.0-34.0); MCHC 33.4 g/dL (31.0-37.0); MEAN PLATELET VOLUME 11.3 fL (7.4-10.4); MONOCYTES 8.5 % (2-11); NEUTROPHILS 70.6 % (40-80); RBC 5.47 10x6/uL (4.20-6.10); RDW 14.2 % (11.5-14.5)
[2018-12-15 08:40] LABS: ANION GAP 14.2 mmol/L (8-16); CALCIUM 8.6 mg/dL (8.5-10.1); CARBON DIOXIDE 24.9 mmol/L (21.0-32.0); CREATININE - SERUM 1.2 mg/dL (0.6-1.3); PLATELET COUNT 336 10x3/uL (130-400); POTASSIUM - SERUM 4.1 mmol/L (3.5-5.1)
--- NOTE | 2018-12-15 10:50 | NUR ---
BILATERAL GROIN SITES C/D/I. NO S/S OF HEMATOMA NOTED. BILAT PEDAL PULSE PALPABLE. FAMILY AT BEDSIDE. VSS
--- NOTE | 2018-12-15 11:00 | NUR ---
BP 140/88 WITH HR 68 CHEST PAIN IS DENIED. 5 FR EXOSEAL LGROIN CDI AND 6 FR EXOSEAL R/GROIN IS CDI NO BLEEDING OR HEMATOMA NOTED. PATIENT VERBALIZED NO NEEDS. IS AT BEDSIDE WITH CALL LIGHT IN REACH
--- NOTE | 2018-12-15 11:12 | NUR ---
BILATERAL GROIN DRESSINGS REMAIN CDI WITH CHEST PAIN DENIED. VSS INSTRUCTED PATIENT TO KEEP HEAD FLAT ON PILLOW WITH LOWER EXTREMITIES STRAIGHT
--- NOTE | 2018-12-15 11:49 | NUR ---
PATIENT RESTING QUIETLY WITH NO DISTRESS. BILATERAL GROIN DRESSING REMAIN CDI
--- NOTE | 2018-12-15 12:08 | NUR ---
DR FARIA AT BEDSIDE WITH PATIENT AND . BILATERAL GROINS ARE CDI
--- NOTE | 2018-12-15 12:39 | NUR ---
PATIENT ALERT AND ORIENTED WITH NEEDS DENIED. BILATERAL GROIN DRESSING ARE INTACT WITH NO BLEEDING OR HEMATOMA
--- NOTE | 2018-12-15 12:59 | NUR ---
PATIENT WATCHING TV IN ROOM WITH FAMILY AT BEDSIDE. BILATERAL GROINS ARE CDI VSS
--- NOTE | 2018-12-15 13:29 | NUR ---
RESTING QUIETLY WITH EYES CLOSED. VSS AND BILATERAL GROINS ARE CDI
--- NOTE | 2018-12-15 13:43 | NUR ---
REPOSITIONED TO [facility] UP 30 FOR COMFORT. BILATERAL GROINS ARE CDI
--- NOTE | 2018-12-15 14:13 | NUR ---
VERBAL AND WRITTEN DISCHARGE GONE OVER WITH PATIENT AND BOTH VERBALIZED UNDERSTANDING. BILATERAL GROINS ARE CDI, PIV REMOVED WITH DRESSING APPLIED. PATIENT UP TO GET DRESSED FOR DISCHAGE HOME CHEST PAIN DENIED
--- NOTE | 2018-12-15 14:21 | NUR ---
PATIENT LEFT VIA WC TO PARKING FOR TRANSPORT HOME BILATERAL GROINS ARE CDI AND PATIENT DENIED CHEST PAIN
--- NOTE | 2018-12-17 17:10 | OP ---
PATIENT NAME: RAMO MAURO MEDICAL RECORD: [id number] :53 LOCATION:D.CAT ADMISSION DATE: SURGEON: DENI FARIA MD DATE OF OPERATION: 12/15/2018 PROCEDURES: 1. CHORUS MASTER, drug-eluting balloon, right iliac. 2. CHORUS MASTER stent, right renal. 3. Aortofemoral runoff. 4. Abdominal aortography. 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 PROCEDURE IN DETAIL: After informed consent was obtained and after a detailed description of risks, benefits as well as alternative therapies, the patient elected to proceed with angiogram and angioplasty. The right femoral area was prepped and draped in normal sterile fashion. Right femoral artery was cannulated via modified Seldinger technique with placement of 6-Kazakh sheath. All catheters exchanged through this sheath. FINDINGS: The abdominal aortography was performed. The catheter was pulled down for aortofemoral runoff. Abdominal aortography reveals no significant abdominal aortic disease, no dissection or aneurysm formation. The right renal artery is greater than 80% stenosis with pressure damping at the ostium. The left renal artery has no significant stenosis. RIGHT LEG: A. Iliac: The common iliac has previously placed stents. There is 80% in-stent restenosis in this stent. Otherwise, the iliacs have moderate irregularities, but no flow-limiting stenosis. B. Femoral system: The common superficial and deep femoral have moderate irregularities, but no flow-limiting stenosis. C. Popliteal and infrapopliteal vessels are widely patent with good 3-vessel runoff to the foot. LEFT LEG: A. Iliac: The common internal and external iliacs have moderate irregularities, but no flow-limiting stenosis. B. Femoral system: The common superficial and deep femoral have moderate irregularities, but no flow-limiting stenosis. C. Popliteal and infrapopliteal vessels are widely patent with good 3-vessel runoff to the foot. CHORUS MASTER STENT OF THE RIGHT RENAL ARTERY: The balloon and stent used were 5 x 15 Palmaz taken to 9 atmospheres. Result was 0% residual stenosis. No further pressure damping at the ostium. DRUG-ELUTING CHORUS MASTER FOR IN-STENT RESTENOSIS OF THE RIGHT ILIAC: The balloon used was a 6 x 40 Stellarex. Two inflations were made up to 15 atmospheres. Result was 0% residual stenosis. OVERALL IMPRESSION: Successful CHORUS MASTER drug-eluting balloon therapy to in-stent restenosis of the right iliac going from 80% initial stenosis to 0% residual and successful CHORUS MASTER stent of the right renal artery going from 80% initial stenosis OPERATIVE REPORT [id number] RAMO MAURO to 0% residual stenosis. TRANSINT:[id number] Voice Confirmation ID: [id number] DOCUMENT ID: [id number] DENI FARIA MD at 1710 CC: [id number] DICTATION DATE: 12/15/18 1022 HALL MANAGER: 12/15/18 1034 DEP CLI 12/15/18 [facility] [address] [place] [address]
== END | disposition home or self-care (01) ==
LOC: D.CATH 07:31
PROVIDERS: Internal Medicine Interventional Cardiology
DX: I70.211 Atherosclerosis of native arteries of extremities with intermittent claudication, right leg (principal); I15.0 Renovascular hypertension; N28.9 Disorder of kidney and ureter, unspecified